=== PATIENT | female | born 1965 | race Caucasian/White ===

== ENCOUNTER → 2021-01-11 | Day surgery (SDC) | payer OTHER ==
[2021-01-08 09:04] LABS: BASOPHILS % 0.4 % (0.0-1.0); EOSINOPHILS # (AUTO) 0.2 (0.0-0.4); EOSINOPHILS % 2.8 % (0.0-6.0); HEMATOCRIT 36.1 % (34.2-44.1); HEMOGLOBIN 11.5 g/dL (12.0-16.0); LYMPHOCYTES % 24.8 % (18.0-39.1); MEAN CORPUSCULAR HEMOGLOBIN 28.8 pg (28-32); MEAN CORPUSCULAR HGB CONC 31.9 g/dL (31-35); MEAN CORPUSCULAR VOLUME 90.5 fL (81-99); MONOCYTES # (AUTO) 0.4 (0.2-0.8); MONOCYTES % 5.4 % (4.4-11.3); NEUTROPHILS # (AUTO) 5.2 (2.1-6.9); NEUTROPHILS % 66.2 % (38.7-80.0); PLATELET COUNT 286 x10e3/uL (140-360); RED BLOOD COUNT 3.99 x10e6/uL (3.6-5.1); RED CELL DISTRIBUTION WIDTH 13.5 % (11.7-14.4)
[~2021-01-11] MED LIST: DIOVAN HCT 1601 EACH PO; ESTRADIOL2 MG PO; FENTANYL CITRATE/PF 100MCG/2 ML INJ ONE; FISH OIL PO; HAIR, SKIN & N1 EAC1 PO; JANTOVEN3 MG PO; LIDOCAINE HCL 2% LOCAL INJ 5 ML SDV VIAL INJ ONE; LIPITOR10 MG PO; METFORMIN HCL500 MG PO; METOCLOPRAMIDE HCL 10 MG/2ML VIAL ONE; MIDAZOLAM HCL 2 MG/2 ML VIAL ONE; OMEPRAZOLE40 MG PO; PANTOPRAZOLE 40 MG 10ML VIAL ONE; PROPOFOL IV EMULSION 10 MG/ML 20 ML VIAL ONE; SIMETHICONE 40 MG/0.6 ML BTL ONE; SIMVASTATIN10 MG PO; SOTALOL80 MG PO
[2021-01-11 06:51] LABS: INR 0.95; PARTIAL THROMBOPLASTIN TIME 25.5 seconds (23.8-35.5); PROTHROMBIN TIME 13.3 seconds (11.9-14.5)
[2021-01-11 09:20] VITALS: BP 103/69
[2021-01-11 11:06] LABS: WBC,FECAL (FECAL LACTOFERRIN) NEGATIVE (NEGATIVE)
[2021-01-11 13:54] LABS: C DIFFICILE TOXIN A&B AMP PROB NEGATIVE (NEGATIVE)
== END | disposition home or self-care (01) ==
LOC: OR 05:51
PROVIDERS: ATTEND Internal Medicine Gastroenterology
DX: K20.90 Esophagitis, unspecified without bleeding (principal); D12.8 Benign neoplasm of rectum; K31.7 Polyp of stomach and duodenum; K29.70 Gastritis, unspecified, without bleeding; K52.9 Noninfective gastroenteritis and colitis, unspecified; K21.9 Gastro-esophageal reflux disease without esophagitis; K44.9 Diaphragmatic hernia without obstruction or gangrene; K62.89 Other specified diseases of anus and rectum; K64.8 Other hemorrhoids; I25.10 Atherosclerotic heart disease of native coronary artery without angina pectoris; I25.2 Old myocardial infarction; E78.00 Pure hypercholesterolemia, unspecified; I10 Essential (primary) hypertension; E11.9 Type 2 diabetes mellitus without complications; Z88.8 Allergy status to other drugs, medicaments and biological substances; Z01.812 Encounter for preprocedural laboratory examination; Z20.822 Contact with and (suspected) exposure to COVID-19; Z79.84 Long term (current) use of oral hypoglycemic drugs; Z79.01 Long term (current) use of anticoagulants; Z68.32 Body mass index [BMI] 32.0-32.9, adult; Z95.5 Presence of coronary angioplasty implant and graft
CPT/HCPCS: 36415 ×2; 43239; 43450; 45380; 82948; 83630; 83993; 85025; 85610; 85730; 87045; 87177; 87328; 87493; C9113; J2001; J2250; J2704; J2765; J3010; U0002; 45378

== ENCOUNTER → 2021-04-12 | Outpatient (CLI) | payer OTHER ==
[~2021-04-12] MED LIST changes: -FENTANYL CITRATE/PF 100MCG/2 ML INJ ONE; +IOPAMIDOL 370 MG/ML 200 ML INFUS..BTL INJ ONE; -LIDOCAINE HCL 2% LOCAL INJ 5 ML SDV VIAL INJ ONE; -METOCLOPRAMIDE HCL 10 MG/2ML VIAL ONE; -MIDAZOLAM HCL 2 MG/2 ML VIAL ONE; -PANTOPRAZOLE 40 MG 10ML VIAL ONE; -PROPOFOL IV EMULSION 10 MG/ML 20 ML VIAL ONE; -SIMETHICONE 40 MG/0.6 ML BTL ONE; +SODIUM CHLORIDE 0.9% 50ML 50 ML ONE
== END ==
LOC: CT 13:30
PROVIDERS: ATTEND Internal Medicine Gastroenterology
DX: R06.02 Shortness of breath (principal); R10.11 Right upper quadrant pain
CPT/HCPCS: 74160; Q9967

== ENCOUNTER → 2024-11-25 | Day surgery (SDC) | payer OTHER ==
[2024-11-21 09:34] LABS: BASOPHILS # (AUTO) 0.1 (0.0-0.1); BASOPHILS % 1.1 % (0.0-1.0); EOSINOPHILS # (AUTO) 0.5 (0.0-0.4); EOSINOPHILS % 7.6 % (0.0-6.0); HEMATOCRIT 41.2 % (34.2-44.1); HEMOGLOBIN 13.6 g/dL (12.0-16.0); LYMPHOCYTES % 31.5 % (18.0-39.1); MEAN CORPUSCULAR HEMOGLOBIN 30.9 pg (28-32); MEAN CORPUSCULAR VOLUME 93.6 fL (81-99); MONOCYTES # (AUTO) 0.5 (0.2-0.8); MONOCYTES % 8.1 % (4.4-11.3); NEUTROPHILS # (AUTO) 3.3 (2.1-6.9); NEUTROPHILS % 51.4 % (38.7-80.0); PLATELET COUNT 297 x10e3/uL (140-360); RED CELL DISTRIBUTION WIDTH 12.6 % (11.7-14.4); WHITE BLOOD COUNT 6.41 x10e3/uL (4.8-10.8)
[~2024-11-25] MED LIST changes: +AMLODIPINE BESYL5 MG PO; +B12 ACTIVE1000 MCG PO; +BUMETANIDE1 MG PO; +ELIQUIS5 MG PO; +FEROSUL325 MG PO; +GLYCOPYRROLATE INJ 0.2 MG/ML VIAL ONE; +HYOSCYAMINE SULFATE 0.5 MG/ML INJ ONE; -IOPAMIDOL 370 MG/ML 200 ML INFUS..BTL INJ ONE; +JARDIANCE10 MG PO; +KETAMINE HCL INJ 50 MG/ML 10 ML VIAL ONE; +LIDOCAINE HCL 2% LOCAL INJ 5 ML SDV VIAL INJ ONE; +LOSARTAN POTASS25 MG PO; +METOCLOPRAMIDE HCL 10 MG/2ML VIAL ONE; +METOPROLOL SUCC50 MG PO; +POTASSIUM CHLO10 ME1 PO; +PROPOFOL IV EMULSION 50 ML IV ONE; +REVATIO20 MG PO; -SODIUM CHLORIDE 0.9% 50ML 50 ML ONE; +SODIUM CHLORIDE 0.9% INJ 10 ML VIAL ONE
[2024-11-25] MEDS: LACTATED RINGER'S 1,000 ML ONE (07:48)
[2024-11-25 10:19] VITALS: TEMP 97.4
[2024-11-25 10:42] VITALS: BP 103/65; PULSE 73; RESP 18; O2SAT 98
[2024-11-25 11:30] LABS: WBC,FECAL (FECAL LACTOFERRIN) POSITIVE (NEGATIVE)
[2024-11-25 13:00] LABS: CDIFF AG QUIK CHEK NEGATIVE (NEGATIVE)
[2024-11-25 13:01] LABS: CDIFF TOX QUIK CHEK NEGATIVE (NEGATIVE)
[2024-11-30 05:10] LABS: ENDOMYSIAL ANTIBODIES, IGA Negative (Negative); IMMUNOGLOBULIN A 446 mg/dL (87-352)
[2024-11-30 05:14] LABS: C-REACTIVE PROTEIN <1 mg/L (0-10); TISSUE TRANSGLUTAMINASE IGA AB <2 U/mL (0-3)
== END | disposition home or self-care (01) ==
LOC: OR 07:30
PROVIDERS: ATTEND Internal Medicine Gastroenterology
DX: D64.89 Other specified anemias (principal); K63.5 Polyp of colon; K31.7 Polyp of stomach and duodenum; K29.50 Unspecified chronic gastritis without bleeding; K52.9 Noninfective gastroenteritis and colitis, unspecified; K31.89 Other diseases of stomach and duodenum; K21.9 Gastro-esophageal reflux disease without esophagitis; K20.90 Esophagitis, unspecified without bleeding; K44.9 Diaphragmatic hernia without obstruction or gangrene; K62.89 Other specified diseases of anus and rectum; K64.8 Other hemorrhoids; E11.9 Type 2 diabetes mellitus without complications; I10 Essential (primary) hypertension; I25.10 Atherosclerotic heart disease of native coronary artery without angina pectoris; I25.2 Old myocardial infarction; I34.1 Nonrheumatic mitral (valve) prolapse; E78.5 Hyperlipidemia, unspecified; R63.4 Abnormal weight loss; R09.89 Other specified symptoms and signs involving the circulatory and respiratory systems; I27.21 Secondary pulmonary arterial hypertension; Z88.8 Allergy status to other drugs, medicaments and biological substances; Z01.810 Encounter for preprocedural cardiovascular examination; Z01.812 Encounter for preprocedural laboratory examination; Z79.02 Long term (current) use of antithrombotics/antiplatelets; Z79.84 Long term (current) use of oral hypoglycemic drugs; Z79.899 Other long term (current) drug therapy; Z68.27 Body mass index [BMI] 27.0-27.9, adult; Z87.11 Personal history of peptic ulcer disease; Z95.5 Presence of coronary angioplasty implant and graft; Z86.718 Personal history of other venous thrombosis and embolism; Z86.711 Personal history of pulmonary embolism
CPT/HCPCS: 36415 ×2; 43239; 45380; 45385; 82784; 82948; 83516; 83630; 83993; 85025; 86140; 86256; 87045; 87177; 87324; 87328; 87449; 93005; J1980; J2003; J2470; J2704; J2765; J7121